=== PATIENT | female | born 1940 | race Two or more races ===

== ENCOUNTER 2016-04-14 16:26 | Observation (INO) | payer MEDICAID ==
[~2016-04-14 16:26] MED LIST: AMLODIPINE BESYL5 MG PO; ASPIRIN325 M3 PO; CARVEDILOL6.25 M1 PO; CLOPIDOGREL75 M1 PO; CRESTOR20 M1 PO; HUMALOG100 UNITS/ SC; HYDROCHLOROTH12.5 M2 PO; HYDROCODON-ACE1 EA16 PO; LANTUS SOL100 UNIT/1 SC; RAMIPRIL10 M1 PO
[2016-04-14] MEDS ORDERED: ASPIRIN EC81 MG PO (16:50)
[2016-04-14] MEDS ORDERED: NEURONTIN300 M1 PO (16:52)
[2016-04-14] MEDS ORDERED: HUMALOG100 UNITS/ SC (16:53)
[2016-04-14] MEDS ORDERED: LANTUS100 UNITS/ SC (16:53)
[2016-04-14] MEDS ORDERED: LOPERAMIDE2 M3 PO (16:56)
[2016-04-14] MEDS ORDERED: MELATIN3 MG PO (16:56)
[2016-04-14] MEDS ORDERED: NORVASC10 M2 PO (16:57)
[2016-04-14] MEDS ORDERED: DEMADEX20 M1 PO (16:58)
[2016-04-14] MEDS ORDERED: VITAMIN D31000 UNI3 PO (16:58)
[2016-04-14 19:51] LABS: BASO % 0.1 % (0-2); EOS % 0.4 % (0-7); HCT-HEMATOCRIT 30.8 % (34.0-49.0); HGB-HEMOGLOBIN 10.3 gm/dl (12.0-15.5); IMMATURE GRANULOCYTES ABSOLUTE 0.03 tho/cmm (0-0.03); IMMATURE GRANULOCYTES PERCENT 0.4 % (0-0.3); LYMPH % 17.7 % (20-45); LYMPH ABSOLUTE COUNT 1.4 tho/cmm (0.8-4.5); MCH (MEAN CORPUSCULAR HGB) 28.4 pg (28.0-32.0); MCHC MEAN CORPUSCULAR HGB CONC 33.4 % (32.0-36.0); MCV (MEAN CELL VOLUME) 84.8 fl (82.0-96.0); MEAN PLATELET VOLUME 11.8 cmc (9.4-12.4); MONO % 9.3 % (0-12); MONOCYTE ABSOLUTE COUNT 0.8 tho/cmm (0.0-1.2); NEUTROPHIL ABSOLUTE COUNT 5.8 tho/cmm (1.6-8.0); NEUTROPHIL-AUTOMATED 5.8 tho/cmm (1.6-8.0); NEUTROPHILS % 72.1 % (40-80); PLATELET COUNT 215 tho/cmm (150-450); RED BLOOD COUNT 3.63 mil/cmm (4.00-5.20); RED CELL DISTRIBUTION WIDTH 13.1 % (12.4-16.4); WHITE BLOOD COUNT 8.1 tho/cmm (4.0-10.0)
[2016-04-14 19:58] LABS: KETONE-BETA (WHOLE BLOOD) 0.2 mmol/L (0.0-0.6)
[2016-04-14 20:11] LABS: URINE BILIRUBIN NEGATIVE (NEG); URINE BLOOD SMALL (NEG); URINE GLUCOSE (UA) LARGE (NEG); URINE KETONE NEGATIVE (NEG); URINE LEUKOCYTE ESTERASE POSITIVE (NEG); URINE NITRITE NEGATIVE (NEG); URINE PROTEIN MODERATE (NEG); URINE SPECIFIC GRAVITY 1.005 (1.003-1.030)
[2016-04-14 20:16] LABS: URINE APPEARANCE HAZY; URINE COLOR YELLOW
[2016-04-14 20:22] LABS: URINE BACTERIA 2+; URINE EPITHELIAL CELLS 0-1 /[HPF] (0-10)
[2016-04-14 20:38] LABS: ALB/GLOB RATIO 0.9 (0.8-2.0); ALBUMIN 3.7 g/dl (3.5-5.0); ALKALINE PHOSPHATASE 107 U/L (33-138); ALT/SGPT 18 U/L (12-78); AST/SGOT 10 U/L (10-40); BLOOD UREA NITROGEN 54 mg/dl (6-24); CALCIUM 8.7 mg/dl (8.5-10.5); CARBON DIOXIDE-VENOUS 27 mmol/L (22-32); CHLORIDE 80 mmol/l (96-110); CREATININE 2.14 mg/dl (0.50-1.10); MAGNESIUM 2.3 mg/dl (1.3-2.6); PHOSPHOROUS 3.8 mg/dl (2.5-4.9); eGFR VALUE FOR BLACK 25 mL/Min
[2016-04-14 20:39] LABS: ANION GAP 15 mmol/L (0-20); GLUCOSE 827 mg/dL (70-110); SODIUM 118 mmol/L (135-145)
[2016-04-14 20:40] LABS: OSMOLALITY 313 mOsm/kg (275-295)
[2016-04-15 00:46] LABS: ANION GAP 10 mmol/L (0-20); BLOOD UREA NITROGEN 47 mg/dl (6-24); CALCIUM 8.6 mg/dl (8.5-10.5); CARBON DIOXIDE-VENOUS 31 mmol/L (22-32); CHLORIDE 94 mmol/l (96-110); CREATININE 1.75 mg/dl (0.50-1.10); POTASSIUM 3.5 mmol/L (3.7-5.1); SODIUM 131 mmol/L (135-145); eGFR VALUE FOR BLACK 32 mL/Min
[2016-04-15 00:47] LABS: GLUCOSE 313 mg/dL (70-110)
[2016-04-15 03:50] LABS: BICARBONATE 29 mmol/L (21-28); BLOOD GAS BASE EXCESS 3 mM/L (-/+3); CARBON DIOXIDE-VENOUS 30 mmol/L (23-30); MIXED VENOUS O2 SATURATION 57 % (60-80); PH 7.35 Units (7.35-7.45)
[2016-04-15 04:55] LABS: ANION GAP 11 mmol/L (0-20); BLOOD UREA NITROGEN 45 mg/dl (6-24); CALCIUM 8.7 mg/dl (8.5-10.5); CARBON DIOXIDE-VENOUS 28 mmol/L (22-32); CHLORIDE 97 mmol/l (96-110); CREATININE 1.67 mg/dl (0.50-1.10); POTASSIUM 4.1 mmol/L (3.7-5.1); SODIUM 132 mmol/L (135-145); eGFR VALUE FOR BLACK 34 mL/Min
[2016-04-15 05:23] LABS: GLUCOSE 156 mg/dL (70-110)
[2016-04-15 08:33] LABS: ANION GAP 10 mmol/L (0-20); BLOOD UREA NITROGEN 42 mg/dl (6-24); CALCIUM 8.4 mg/dl (8.5-10.5); CARBON DIOXIDE-VENOUS 29 mmol/L (22-32); CHLORIDE 101 mmol/l (96-110); CREATININE 1.48 mg/dl (0.50-1.10); GLUCOSE 137 mg/dL (70-110); POTASSIUM 3.8 mmol/L (3.7-5.1); SODIUM 136 mmol/L (135-145); eGFR VALUE FOR BLACK 39 mL/Min
[2016-04-15 08:56] LABS: MAGNESIUM 2.3 mg/dl (1.3-2.6); PHOSPHOROUS 2.1 mg/dl (2.5-4.9)
[2016-04-15 22:10] LABS: MAGNESIUM 2.2 mg/dl (1.3-2.6); PHOSPHOROUS 2.3 mg/dl (2.5-4.9)
[2016-04-16 06:02] LABS: ANION GAP 11 mmol/L (0-20); BLOOD UREA NITROGEN 39 mg/dl (6-24); CALCIUM 8.1 mg/dl (8.5-10.5); CARBON DIOXIDE-VENOUS 26 mmol/L (22-32); CHLORIDE 104 mmol/l (96-110); CREATININE 1.63 mg/dl (0.50-1.10); GLUCOSE 166 mg/dL (70-110); POTASSIUM 3.9 mmol/L (3.7-5.1); SODIUM 137 mmol/L (135-145); eGFR VALUE FOR BLACK 35 mL/Min
[2016-04-16 08:34] LABS: MAGNESIUM 2.1 mg/dl (1.3-2.6); PHOSPHOROUS 3.6 mg/dl (2.5-4.9)
[2016-08-17] MEDS ORDERED: NORCO 5-325 TA1 EACH PO (15:41)
== END 2016-04-16 13:55 ==
LOC: PCUA 16:26
PROVIDERS: Family Medicine; ADMIT Family Medicine
PROC: 05HB33Z Insertion of Infusion Device into Right Basilic Vein, Percutaneous Approach (ICD-10-PCS; principal; 2016-04-14)
DX: E11.65 Type 2 diabetes mellitus with hyperglycemia (principal); E11.00 Type 2 diabetes mellitus with hyperosmolarity without nonketotic hyperglycemic-hyperosmolar coma (NKHHC); I13.0 Hypertensive heart and chronic kidney disease with heart failure and stage 1 through stage 4 chronic kidney disease, or unspecified chronic kidney disease; E11.22 Type 2 diabetes mellitus with diabetic chronic kidney disease; N18.2 Chronic kidney disease, stage 2 (mild); N17.9 Acute kidney failure, unspecified; I50.9 Heart failure, unspecified; E87.1 Hypo-osmolality and hyponatremia; E78.5 Hyperlipidemia, unspecified; I25.10 Atherosclerotic heart disease of native coronary artery without angina pectoris; J45.909 Unspecified asthma, uncomplicated; Z23 Encounter for immunization; Z79.4 Long term (current) use of insulin; Z79.02 Long term (current) use of antithrombotics/antiplatelets; Z79.82 Long term (current) use of aspirin; Z79.899 Other long term (current) drug therapy; Z98.51 Tubal ligation status
CPT/HCPCS: C1751; G0008; G0009; G0378; G0379; J1815; J3480; J7030